=== PATIENT | female | born 1960 | race Caucasian/White ===

== ENCOUNTER 2018-05-11 17:42 | Emergency (ER) | payer BC ==
[2018-05-11 18:10] VITALS: BMI 26.3
[2018-05-11] MEDS ORDERED: Iohexol 240 (50 ml) PO ONE (18:10)
--- NOTE | 2018-05-11 18:15 | ED PDOC ---
HPI: Abdomen Time Seen by Provider: 05/11/18 18:01 Chief Complaint (Provider): Abdominal pain History Per: Patient, Family Additional Complaint(s): 58 yo female, PMH of Thyroid and Breast CA, Diverticulitis, presents to ED with complaints of abdominal pain worsening x 8 days. Pt denies nay fever or chills. Pt admits to nuasea without vomiting and Pt also notes dark stools in the last 2 days, "almost black." Past Medical History Reviewed: Nursing Documentation, Vital Signs Vital Signs: Last Vital Signs Temp 98.8 F 05/11/18 18:16 Pulse 72 05/11/18 18:16 Resp 18 05/11/18 18:16 BP 155/92 H 05/11/18 18:16 Pulse Ox 99 05/11/18 18:16 - Medical History Other PMH: thyroid and breast CA, Diverticulitis - Surgical History Other surgeries: thyroidectomy, hysterectomy - Family History Family History: States: Unknown Family Hx - Living Arrangements Living Arrangements: With Family - Social History Current smoker - smoking cessation education provided: No Alcohol: None Drugs: Denies - Allergies Allergies/Adverse Reactions: Allergies Allergy/AdvReac Type Severity Reaction Status Date / Time codeine Allergy VOMITING Verified 05/11/18 18:14 latex Allergy RASH Verified 05/11/18 18:16 Tape Allergy RASH Uncoded 05/11/18 18:16 Review of Systems ROS Statement: Except As Marked, All Systems Reviewed And Found Negative Gastrointestinal: Positive for: Abdominal Pain Physical Exam - Reviewed Nursing Documentation Reviewed: Yes Vital Signs Reviewed: Yes - Physical Exam Appears: Positive for: Well, Non-toxic, No Acute Distress Head Exam: Positive for: ATRAUMATIC, NORMAL INSPECTION, NORMOCEPHALIC Skin: Positive for: Normal Color, Warm, DRY Eye Exam: Positive for: EOMI, Normal appearance, PERRL ENT: Positive for: Normal ENT Inspection Neck: Positive for: Normal, Painless ROM Cardiovascular/Chest: Positive for: Regular Rate, Rhythm Respiratory: Positive for: CNT, Normal Breath Sounds Gastrointestinal/Abdominal: Positive for: Normal Exam, Soft Back: Positive for: Normal Inspection Extremity: Positive for: Normal ROM Neurologic/Psych: Positive for: Alert, Oriented - Laboratory Results Result Diagrams: 05/11/18 18:50 05/11/18 18:50 Medical Decision Making Medical Decision Making: IV access established and diagnostics ordered. Treatment initiated with Toradol, Zofran and IVF CBC, COMP and UA resulted WNL Pt tolerating Po contrast on re-eval and Pt reports pain improving. no nausea. Case endorsed to BARB Prieto pending diagnostic review and re-eval Disposition - Clinical Impression Clinical Impression: Abdominal pain in female - Patient ED Disposition Is Patient to be Admitted: Transfer of Care - Disposition Disposition: Transfer of Care Disposition Time: 19:31 Condition: STABLE
[2018-05-11] MEDS ORDERED: Sodium Chloride 0.9% 1,000 ML IV STA (18:17)
[2018-05-11 18:23] VITALS: RESP 18
[2018-05-11] MEDS ORDERED: Iohexol 240 (50 ml) ONE (18:26)
[2018-05-11 18:51] LABS: SQUAMOUS EPITHIAL 1 /hpf (0-5); URINE BACTERIA RARE (<OCC); URINE BILIRUBIN NEGATIVE (NEGATIVE); URINE BLOOD NEGATIVE (NEGATIVE); URINE CLARITY CLEAR (Clear); URINE COLOR YELLOW (YELLOW); URINE GLUCOSE (UA) NEG (Normal); URINE PROTEIN NEGATIVE (NEGATIVE); URINE UROBILINOGEN 0.2-1.0 mg/dL (0.2-1.0)
[2018-05-11 18:56] LABS: URINE LEUKOCYTE ESTERASE NEGATIVE Leu/uL (Negative)
[2018-05-11 18:59] LABS: BASO % 0.8 % (0.0-2.0); EOS # 0.1 K/uL (0.0-0.7); EOS % 2.1 % (0.0-4.0); HEMOGLOBIN 12.8 g/dL (12.0-16.0); LYMPH # 1.5 K/uL (1.0-4.3); LYMPH % 31.1 % (20.0-40.0); MEAN CELL VOLUME 84.1 fl (81.0-99.0); MEAN CORPUSCULAR HGB CONC 33.3 g/dL (33.0-37.0); MEAN PLATELET VOLUME 8.3 fl (7.2-11.7); MONO # 0.5 K/uL (0.0-0.8); MONO % 9.6 % (0.0-10.0); NEUT # 2.7 K/uL (1.8-7.0); NEUT % 56.4 % (50.0-75.0); NRBC % 0.1 % (0.0-0.0); RBC 4.58 Mil/uL (3.80-5.20); RED CELL DISTRIBUTION WIDTH 13.9 % (11.5-14.5); WHITE BLOOD COUNT 4.9 K/uL (4.8-10.8)
[2018-05-11 19:07] LABS: ALB/GLOB RATIO 1.5 (1.0-2.1); ALBUMIN 4.2 g/dL (3.5-5.0); ALT/SGPT 25 U/L (9-52); AMYLASE 70 U/L (30-110); AST/SGOT 25 U/L (14-36); BLOOD UREA NITROGEN 23 mg/dl (7-17); CALCIUM 9.2 mg/dL (8.4-10.2); GFR NON-AFRICAN AMERICAN > 60; LIPASE 174 U/L (23-300)
[2018-05-11 20:17] VITALS: O2SAT 100
[2018-05-11] MEDS ORDERED: Iohexol 300 100 ML IJ ONE (21:00)
[2018-05-11] MEDS ORDERED: Sodium Chloride 0.9% 50 ML IV ONE (21:01)
--- NOTE | 2018-05-11 22:49 | ED PDOC ---
- Laboratory Results Result Diagrams: 05/11/18 18:50 05/11/18 18:50 - ECG O2 Sat by Pulse Oximetry: 100 - Progress ED Course And Treament: Case endorsed to senior grant writer from [facility] pending CT EXAM: CT Abdomen and Pelvis With Intravenous Contrast CLINICAL HISTORY: 58 years old, female; Pain; Abdominal pain; Epigastric; Additional info: Epigastric and hafsa umbilical abdomial pain TECHNIQUE: Axial computed tomography images of the abdomen and pelvis with intravenous contrast. All CT scans at this facility use at least one of these dose optimization techniques: automated exposure control; mA and/or kV adjustment per patient size (includes targeted exams where dose is matched to clinical indication); or iterative reconstruction. CONTRAST: 95 mL of OMNIPAQUE-300 was administered intravenously. COMPARISON: No relevant prior studies available. FINDINGS: Lung bases: Unremarkable. No mass. No consolidation. ABDOMEN: Liver: Unremarkable. No mass. Gallbladder and bile ducts: Unremarkable. No calcified stones. No ductal dilation. Pancreas: Unremarkable. No mass. No ductal dilation. Spleen: Unremarkable. No splenomegaly. Adrenals: Unremarkable. No mass. Kidneys and ureters: Unremarkable. No solid mass. No hydronephrosis. Stomach and bowel: Unremarkable. No obstruction. No mucosal thickening. PELVIS: Appendix: Normal appendix. Bladder: Unremarkable. No mass. Reproductive: Unremarkable as visualized. ABDOMEN and PELVIS: Intraperitoneal space: Unremarkable. No free air. No significant fluid collection. Bones/joints: Degenerative facet arthropathy lower lumbar spine. No acute fracture. No dislocation. Soft tissues: Unremarkable. Vasculature: Unremarkable. No abdominal aortic aneurysm. Lymph nodes: Unremarkable. No enlarged lymph nodes. IMPRESSION: No acute findings. Patient educated on findings, discharged with rx Bentyl Advised follow up PMD 2-3 days Return precautions given Disposition - Clinical Impression Clinical Impression: Abdominal pain in female - POA Present On Arrival: None - Disposition Disposition: Routine/Home Disposition Time: 22:53 Condition: IMPROVED Prescriptions: Dicyclomine [Bentyl] 20 mg PO TID PRN #21 tab PRN Reason: Pain, Mild (1-3) Instructions: Acute Abdomen (Belly Pain), Adult (DC) Forms: [email or web address] ([place]ian)
[2018-05-11 23:09] VITALS: BP 159/96; PULSE 61; TEMP 98.1
--- NOTE | 2018-05-12 12:21 | CT ---
Date of service: 05/11/2018 PROCEDURE: CT Abdomen and Pelvis with contrast HISTORY: epigastric and hafsa umbilical abdomial pain COMPARISON: None. TECHNIQUE: Contrast dose: 95 milliliters Omnipaque Radiation dose: Total exam DLP = 332 mGy-cm. This CT exam was performed using one or more of the following dose reduction techniques: Automated exposure control, adjustment of the mA and/or kV according to patient size, and/or use of iterative reconstruction technique. FINDINGS: LOWER THORAX: No infiltrate or effusion at the lung bases. Visualized distal esophagus is unremarkable. No pericardial effusion is seen. LIVER: Liver may be slightly fatty infiltrated, without evidence of focal mass or intrahepatic ductal dilatation. GALLBLADDER AND BILE DUCTS: Unremarkable. PANCREAS: Unremarkable. No gross lesion or ductal dilatation. SPLEEN: Unremarkable. ADRENALS: Unremarkable. No mass. KIDNEYS AND URETERS: Unremarkable. No hydronephrosis. No solid mass. VASCULATURE: Minor atherosclerotic change. No evidence of aneurysm. BOWEL: Visualized stomach is decompressed limiting evaluation although no definite wall thickening. Minor duodenal thickening is not excluded although no periduodenal inflammatory changes are noted. No small bowel dilatation or small bowel obstruction is noted. Mild scattered colonic diverticuli are seen. There is no evidence of colonic wall thickening or pericolonic inflammatory change. Terminal ileum is unremarkable. APPENDIX: Normal appendix. PERITONEUM: No ascites is seen. No free intraperitoneal air is noted. LYMPH NODES: No appreciable lymphadenopathy. BLADDER: Unremarkable. REPRODUCTIVE: Unremarkable. BONES: Mild degenerative changes are seen in the spine without compression fracture. Hemangioma is seen in the T10 vertebral body. Mild degenerative changes are seen in the hips. OTHER FINDINGS: None. IMPRESSION: No appreciable acute inflammatory process in the abdomen or pelvis. No evidence of bowel obstruction. No appreciable ascites. No evidence of gallstones. Minor thickening of the duodenum, a portion which may be related to underdistention. Mild duodenitis is not excluded. Stomach is decompressed without wall thickening.
== END 2018-05-11 23:10 | disposition home or self-care (01) ==
LOC: H.ER 17:42
DX: R10.9 Unspecified abdominal pain (principal); K57.90 Diverticulosis of intestine, part unspecified, without perforation or abscess without bleeding; C50.912 Malignant neoplasm of unspecified site of left female breast
CPT/HCPCS: 74177; 80053; 81003; 82150; 83690; 84484; 85025; 96374; 96375; 99285; J1885; J2405; J7030; Q9966; Q9967